=== PATIENT | male | born 1940 | race Caucasian/White ===

== ENCOUNTER 2016-12-05 15:53 | Emergency (ER) | payer BC, MEDICARE ==
[2016-12-05 17:22] VITALS: BP 148/85
--- NOTE | 2016-12-05 17:41 | UC ---
Complaint Male HPI - HPI Summary HPI Summary: ONE WEEK OF LEFT TESTICULAR SWELLING AND TENDERNESS. NO FEVER NO ABDOMINAL PAIN , NO RECTAL PAIN OR BLEEDING. NO PENILE DISCHARGE OR RASHES. ONE MONTH AGO DAUGHTER JUMPED ON LAP AND HIS TESTICLE, BUT NO KNOWN RECENT TRAUMA. - History of Current Complaint Chief Complaint: UCGeneralIllness Stated Complaint: PERSONAL Time Seen by Provider: 12/05/16 17:24 Hx Obtained From: Patient Onset/Duration: Gradual Onset, Lasting Days, Worse Since - TODAY Timing: Intermittent, Lasting Days Severity Initially: Mild Severity Currently: Moderate Location: Testicle - LEFT Alleviating Factor(s): Nothing Associated Signs And Symptoms: Positive: Back Pain - MILD LOW BACK. Negative: Fever, Hematuria, Dysuria, Constipation, Blood in Stool, Rectal Pain, Appetite, Nausea, Vomiting(# Of Episodes =), Penile Swelling, Penile Discharge - Risk Factors Testicular Torsion: Recent Testicular Trauma - NONE RECENTLY; ONE MONTH AGO GRAND DAUGHTER JUMPED INTO LAP & HIT TESTICLE - Allergies/Home Medications Allergies/Adverse Reactions: Allergies Allergy/AdvReac Type Severity Reaction Status Date / Time No Known Allergies Allergy Verified 12/05/16 17:21 PMH/Surg Hx/FS Hx/Imm Hx Previously Healthy: Yes Endocrine History Of: Reports: Thyroid Disease Cardiovascular History Of: Reports: Hypertension - Surgical History Surgical History: Yes Surgery Procedure, Year, and Place: breast lump benign - Family History Known Family History: Positive: Cardiac Disease - Social History Occupation: Retired Lives: With Family Alcohol Use: None Substance Use Type: None Smoking Status (MU): Never Smoked Tobacco Review of Systems Constitutional: Negative Skin: Negative Eyes: Negative ENT: Negative Respiratory: Negative Cardiovascular: Negative Gastrointestinal: Negative Genitourinary: Other - LEFT TESTICLE ENLARGED TO 5 TIMES SIZE OF RIGHT TESTICLE. DIFFUSELY TENDER. Motor: Negative Neurovascular: Negative Musculoskeletal: Negative Neurological: Negative Psychological: Negative All Other Systems Reviewed And Are Negative: Yes Physical Exam Triage Information Reviewed: Yes Appearance: Well-Appearing, No Pain Distress, Well-Nourished Vital Signs: Initial Vital Signs Temp 98.5 F 12/05/16 17:18 Pulse 75 12/05/16 17:18 Resp 15 12/05/16 17:18 BP 148/85 12/05/16 17:18 Pulse Ox 98 12/05/16 17:18 Vital Signs Reviewed: Yes Eye Exam: Normal ENT Exam: Normal ENT: Positive: Normal ENT inspection, Hearing grossly normal, Pharynx normal, TMs normal Dental Exam: Normal Neck exam: Normal Neck: Positive: Supple, Nontender, No Lymphadenopathy Respiratory Exam: Normal Respiratory: Positive: Chest non-tender, Lungs clear, Normal breath sounds, No respiratory distress, No accessory muscle use Cardiovascular Exam: Normal Cardiovascular: Positive: RRR, No Murmur, Pulses Normal, Brisk Capillary Refill Abdominal Exam: Normal Abdomen Description: Positive: Nontender, No Organomegaly, Soft, Other: - LEFT TESTICLE ENLARGED TO 5 TIMES SIZE OF RIGHT TESTICLE. DIFFUSELY TENDER.. Negative: CVA Tenderness (R), CVA Tenderness (L) Musculoskeletal Exam: Normal Musculoskeletal: Positive: Strength Intact, ROM Intact Neurological Exam: Normal Neurological: Positive: Alert, Muscle Tone Normal Psychological Exam: Normal Psychological: Positive: Normal Response To Family, Age Appropriate Behavior Skin Exam: Normal Complaint Male Course/Dx - Differential Dx/Diagnosis Differential Diagnosis/HQI/PQRI: Epididymitis, Prostatitis, Testicular Torsion, Other - TESTICULAR CANCER, VERICOCELE, HYDROCELE Provider Diagnoses: LEFT SIDED TESTICULAR PAIN AND EDEMA - Physician Notifications Discussed Patient Care With: DR PADILLA Time Discussed With Above Provider: 17:15 Instructed by Provider To: MD Will See In ED Discharge - Discharge Plan Condition: Stable Disposition: TRANS HIGHER LVL OF CARE FAC
== END 2016-12-05 17:51 | disposition left against medical advice (07) ==
LOC: UCCORT 15:53
DX: N50.812 Left testicular pain (principal); N50.89 Other specified disorders of the male genital organs; M54.5 Low back pain
CPT/HCPCS: 99212; G0463

== ENCOUNTER 2018-04-04 14:43 | Emergency (ER) | payer BC, MEDICARE ==
[2018-04-04 15:01] VITALS: BP 154/84
--- NOTE | 2018-04-04 15:12 | ED ---
Lower Extremity - HPI Summary HPI Summary: 77 yr old male with right lower extremity edema for three weeks. he states he gets it every summer, but this year more swelling than usual. No SOB, no CP. NO fever or chills. No dizziness. - History of Current Complaint Chief Complaint: UCLowerExtremity Stated Complaint: RIGHT LEG SWOLLEN Time Seen by Provider: 04/04/18 15:02 Pain Intensity: 2 - Allergies/Home Medications Allergies/Adverse Reactions: Allergies Allergy/AdvReac Type Severity Reaction Status Date / Time No Known Allergies Allergy Verified 04/04/18 15:02 Home Medications: Home Medications Levothyroxine TAB* [Synthroid TAB*] 75 mcg PO DAILY 04/04/18 [History Confirmed 04/04/18] metFORMIN* [Glucophage 500 MG TAB *] 500 mg PO BID 04/04/18 [History Confirmed 04/04/18] PMH/Surg Hx/FS Hx/Imm Hx Endocrine/Hematology History: Reports: Hx Diabetes, Hx Thyroid Disease Cardiovascular History: Reports: Hx Hypertension - Cancer History Cancer Type, 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 - Surgical History Surgery Procedure, Year, and Place: breast lump benign Infectious Disease History: No Infectious Disease History: Denies: Traveled Outside the [place] in Last 30 Days - Family History Known Family History: Positive: Cardiac Disease - Social History Alcohol Use: None Substance Use Type: Reports: None Smoking Status (MU): Never Smoked Tobacco Review of Systems Constitutional: Negative Negative: Palpitations, Chest Pain Negative: Shortness Of Breath Positive: Edema - right leg All Other Systems Reviewed And Are Negative: Yes Physical Exam Triage Information Reviewed: Yes Vital Signs On Initial Exam: Initial Vitals Temp Pulse Resp BP Pulse Ox 97.7 F 76 21 154/84 98 04/04/18 14:58 04/04/18 14:58 04/04/18 14:58 04/04/18 14:58 04/04/18 14:58 Vital Signs Reviewed: Yes Appearance: Positive: Well-Appearing, No Pain Distress Skin: Positive: Warm, Skin Color Reflects Adequate Perfusion Head/Face: Positive: Normal Head/Face Inspection Eyes: Positive: EOMI ENT: Positive: Normal ENT inspection Neck: Positive: Nontender Respiratory/Lung Sounds: Positive: Clear to Auscultation, Breath Sounds Present Cardiovascular: Positive: RRR. Negative: Murmur Abdomen Description: Positive: Nontender Musculoskeletal: Positive: Strength/ROM Intact, Edema Right - leg without discoloration, redness or bruising. Non tender leg and no increased warmth. Neurological: Positive: Sensory/Motor Intact, Alert, Oriented to Person Place, Time, CN Intact II-III Psychiatric: Positive: Normal Diagnostics - Vital Signs Vital Signs Temp Pulse Resp BP Pulse Ox 04/04/18 14:58 97.7 F 76 21 154/84 98 - Laboratory Lab Statement: Any lab studies that have been ordered have been reviewed, and results considered in the medical decision making process. Lower Extremity Course/Dx - Course Course Of Treatment: 77 yr old with hypertension and will follow up with PMD for further monitoring. He has edema right leg that is three weeks old, recurrent each summer. He will go to the ER from here to get US of leg to eval for DVT. - Diagnoses Provider Diagnoses: Hypertension, Edema of right lower extremity Discharge - Sign-Out/Discharge Documenting (check all that apply): Discharge/Admit/Transfer - Discharge Plan Condition: Good Disposition: HOME Patient Education Materials: Leg Edema (ED), Hypertension (ED) Referrals: Maximiliano Galan NP [Primary Care Provider] - 1 Day Additional Instructions: You need to go to the Emergency Room immediately upon leaving here to have a venous doppler of your right leg to evaluate your leg for a blood clot. do not delay going. - Billing Disposition and Condition Condition: GOOD Disposition: HOME
== END 2018-04-04 15:14 | disposition home or self-care (01) ==
LOC: UCCORT 14:43
DX: I10 Essential (primary) hypertension (principal); R60.9 Edema, unspecified; E11.9 Type 2 diabetes mellitus without complications; Z79.84 Long term (current) use of oral hypoglycemic drugs; E07.9 Disorder of thyroid, unspecified
CPT/HCPCS: 99211; G0463

== ENCOUNTER 2018-07-06 13:46 | Emergency (ER) | payer MEDICARE ==
--- OUTSIDE RECORDS SUMMARY | 2018-07-06 14:19 | XMS REPORT | Continuity of Care Document ---
:1940 Author Organization [facility] Care Team Providers Name Role Phone EVERARDO RODRIGES Admitting Physician Unavailable EVERARDO RODRIGES Attending Physician Unavailable LESA AKHTAR Primary Care Physician Allergies and Intolerances No Known Allergies Medications No Known Medications Problems Code Code System Problem Name Start Date End Date Status 23310390 SNOMED-CT Headache U Active 02960360 SNOMED-CT Disorder of thyroid gland U Active 851940327 SNOMED-CT Gastroesophageal reflux disease U Active 02999427 SNOMED-CT Anxiety U Active 52844315 SNOMED-CT Bronchitis U Active 142459003 SNOMED-CT [place] U Active 12723523 SNOMED-CT Asthenia U Active Procedures Code Code System Procedure Date G0121 CPT4 COLON CA SCRN NOT HI RSK IND 07/02/2018 Results Laboratory Results Order: Point of Care Glucose ACCUCHECK Specimen Source: Blood Body Site: Legend: (G,H)=High, (GG,HH,CH,#H)=Above High Threshold, (#,L)=Low, (##,CL,#L,LL)=Below Low Threshold, (C,CC,CA,#A,A)=Abnormal LOINC Test Result Flag Range Units Date 1GLUCOSE BedSide 95 70-100 mg/dL 07/02/2018 08:50 Test Comment: [id number] [address]COTT Test Comment: 1No Action Test Comment: 1RN Notified Performing Lab Footnotes:[facility] - [id number] - [address] [place] [address] CONSUELO [id number] Social History Code Code System Social History Observation Description Dates Observed 723960086 SNOMED CT Current Smoking Status Never smoker UNK AdministrativeGender Sex Assigned At Unknown Vital Signs No data in the system Goals Section No data in the system Health Concerns No data in the systemEncounter Diagnosis Date Code Code System Diagnosis Status Z12.11 ICD10 ENC SCREEN MALIG NEOPLASM COLON Active Advance Directives *RHIO - CONSENT IS YES Directive Type Effective Date Truck Driver Notes Supporting Document Name Address Phone No Directive Type 07/02/2018 8:15:57 Not Specified Not Specified Not Specified None No specified AM PT STATES NO ADVANCE DIRECTIVES Directive Type Effective Date Truck Driver Notes Supporting Document Name Address Phone No Directive Type 04/22/2012 5:07:21 Not Specified Not Specified Not Specified None No specified PM Family History No data in the system Functional Status No data in the system Immunizations Vaccine Code Code System Vaccine Name Date Status 123 CVX influenza virus vaccine, H5N1, Completed A/[place] (national stockpile) Medical Equipment No data in the system Mental Status No data in the system Assessment and Plan Assessments No data in the systemPlan Of Treatment No data in the systemPending Tests No data in the system Hospital Discharge Instructions No data in the system Reason for Visit No data in the system
[2018-07-06 14:46] VITALS: BP 117/61
--- NOTE | 2018-07-06 14:53 | UC ---
Skin Complaint HPI - HPI Summary HPI Summary: stung on L hand and forearm by yellow jackets yesterday while weeding. today c/ o swelling with mild itching. no fever, streaking or sob. wants something for the swelling. - History of Current Complaint Time Seen by Provider: 07/06/18 14:46 Stated Complaint: BEE STING Hx Obtained From: Patient Pain Intensity: 0 Aggravating Factor(s): Nothing Alleviating Factor(s): Nothing Associated Signs & Symptoms: Negative: Diaphoresis, Fever, Chills, Cough, Wheezing, Throat Tightening - Allergy/Home Medications Allergies/Adverse Reactions: Allergies Allergy/AdvReac Type Severity Reaction Status Date / Time No Known Allergies Allergy Verified 07/06/18 14:47 Review of Systems Constitutional: Negative Skin: Rash - Red swollen hand and forearm -L Eyes: Negative ENT: Negative Respiratory: Negative Cardiovascular: Negative Gastrointestinal: Negative Genitourinary: Negative Motor: Negative Neurovascular: Negative Musculoskeletal: Negative Neurological: Negative Psychological: Negative Is Patient Immunocompromised?: No All Other Systems Reviewed And Are Negative: Yes PMH/Surg Hx/FS Hx/Imm Hx Endocrine History: 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, Thyroid Disease, Dyslipidemia Cardiovascular History: Hypertension - Surgical History Surgical History: Yes Surgery Procedure, Year, and Place: breast lump benign - Family History Known Family History: Positive: Cardiac Disease - Social History Occupation: Employed Full-time Alcohol Use: None Substance Use Type: None Smoking Status (MU): Never Smoked Tobacco - Immunization History Vaccination Up to Date: Yes Physical Exam Triage Information Reviewed: Yes Appearance: Well-Appearing Vital Signs: Initial Vital Signs Temp 97.4 F 07/06/18 14:43 Pulse 68 07/06/18 14:43 Resp 17 07/06/18 14:43 BP 117/61 07/06/18 14:43 Pulse Ox 98 07/06/18 14:43 Vital Signs Reviewed: Yes Eyes: Positive: Conjunctiva Clear ENT: Positive: Normal ENT inspection Neck: Positive: Supple, Nontender, No Lymphadenopathy Respiratory: Positive: Lungs clear, Normal breath sounds, No respiratory distress Cardiovascular: Positive: RRR, No Murmur Abdomen Description: Positive: Nontender, No Organomegaly, Soft Bowel Sounds: Positive: Present Musculoskeletal: Positive: ROM Intact Neurological: Positive: Alert Psychological: Positive: Age Appropriate Behavior Skin Exam: Normal Skin: Positive: rashes - Mild swelling and faint erythema L dorsal hand and forearm at sting sites. No strealing or LUE adenoapthy. LUE has full s/v/m function. Course/Dx - Course Course Of Treatment: non toxic. no concern for anaphylaxis or infection. exam c/ w local reaction to stings. - Diagnoses Provider Diagnoses: Local reactions to sting LUE Discharge - Sign-Out/Discharge Documenting (check all that apply): Patient Departure All imaging exams completed and their final reports reviewed: No Studies - Discharge Plan Condition: Stable Disposition: HOME Prescriptions: predniSONE [Prednisone 20 MG TAB] 40 mg PO DAILY 5 Days #10 tablet Patient Education Materials: Insect Bite or Sting (ED) Referrals: Amaury Jenkins [Primary Care Provider] - 5 Days - Billing Disposition and Condition Condition: STABLE Disposition: Home
== END 2018-07-06 15:08 | disposition home or self-care (01) ==
LOC: UCCORT 13:46
DX: T63.461A Toxic effect of venom of wasps, accidental (unintentional), initial encounter (principal); Y92.9 Unspecified place or not applicable; E11.9 Type 2 diabetes mellitus without complications; I10 Essential (primary) hypertension
CPT/HCPCS: 99212; G0463